=== PATIENT | female | born 1945 | race Caucasian/White ===

== ENCOUNTER 2019-10-22 11:44 | Outpatient (CLI) | payer MEDICARE, OTHER ==
--- NOTE | 2019-10-22 13:21 | CT Report ---
Reason: SCREENING FOR MALIGNANT NEOPLASM OF RESPIRATORY Procedure Date: 10/22/2019 Accession Number: [id number] / [id number] Procedure: CT - Low Dose Lung Cancer Screen CPT Code: Final Report FULL RESULT: EXAM CT LUNG SCREEN EXAM DATE: 10/22/2019 12:42 PM. HISTORY: 74-year-old patient with [id number] smoking history. Currently smoking: No. Years since quittin. COMPARISON: None. TECHNIQUE: CT examination of the entire thorax without contrast was performed using low-dose technique. Thin section coronal, axial, sagittal and MIP axial images were obtained. In accordance with CT protocol optimization, one or more of the following dose reduction techniques were utilized for this exam: automated exposure control, adjustment of mA and/or KV based on patient size, or use of iterative reconstructive technique. FINDINGS: Nodules: Right upper lobe: 2.5 mm subpleural peripheral image 44, series 4. Posterior 2 mm subpleural, image 34, series 4. Right middle lobe: 2 mm lateral, image 82, series 4. Right lower lobe: 6 mm subpleural peripheral, image 65, series 4. Left upper lobe: Apical 4 mm, image 16, series 4.. Left lower lobe: None. Emphysema: None. Pleura: Unremarkable. Aorta: Thoracic aorta calcified plaque. No aneurysm. Mediastinum: Heart size upper normal. Trace pericardial effusion. Visualized thyroid gland is unremarkable and partly obscured. No enlarged mediastinal or hilar lymph nodes are identified. Calcified bilateral hilar and subcarinal lymph nodes. Small hiatal hernia. Coronary calcifications: Mild degree of coronary artery calcified plaque. Other pulmonary findings: Bilateral calcified granulomas are present. Bilateral lower lobe lung scar/atelectasis. Other extrapulmonary findings: Included portions of the liver, gallbladder, pancreas, adrenals and kidneys are unremarkable. Abdominal aortic calcified plaque. Splenic granulomas are noted. Included portions of the stomach and upper abdominal bowel are unremarkable. Degenerative changes of the thoracic spine. No acute osseous abnormality. Right shoulder arthroplasty is present. Degenerative changes of the left shoulder. Bilateral breast implants are present. IMPRESSION: Lung-RADS ASSESSMENT CATEGORY: 3 - probably benign. Probability of malignancy: 1-2%. RECOMMENDATION: Follow-up six-month low-dose chest CT recommended. [facility]
== END 2019-10-22 11:45 | disposition home or self-care (01) ==
LOC: DI 11:44
PROVIDERS: ATTEND Family Medicine
DX: Z12.2 Encounter for screening for malignant neoplasm of respiratory organs (principal); Z87.891 Personal history of nicotine dependence